=== PATIENT | female | born 1970 | race Caucasian/White ===

== ENCOUNTER 2017-02-22 15:02 | Observation (INO) | payer BC, SELFPAY ==
[~2017-02-22 15:02] MED LIST: ISOVUE-370 76%-LOCM 1 ML ONE
[2017-02-22 15:33] LABS: Hemoglobin 13.4 g/dL (12.0-16.0); Mean Corpuscular HGB CONC 32.5 g/dL (32.0-36.0); Mean Corpuscular Hemoglobin 32.8 pg (27.0-31.0); Mean Platelet Volume 7.3 fL (7.4-10.4); Platelet Count 436 thou/uL (130-400); RBC Distribution Width 12.3 % (11.5-14.5); Red Blood Cell (RBC) Count 4.09 mill/uL (4.20-5.40); White Blood Cell (WBC) Count 8.6 thou/uL (4.8-10.8)
[2017-02-22 15:49] LABS: Band 1 % (5-11); Eosinophils 2 % (0-10); Lymphocytes 28 % (21-51); MDiff Complete? YES; Macrocytosis SLIGHT = 6-15 cells (100X) (0-5/hpf); Monocytes 9 % (0-10); Neutrophil 53 % (42-75); PLT Morphology Comment Appears Increased; Reactive Lymphocytes 7 % (0-10); Target Cells SLIGHT = 2-5 cells (100X) (0-1/hpf)
[2017-02-22 15:58] LABS: ALT (SGPT) 39 U/L (8-55); AST (SGOT) 42 U/L (5-34); Albumin 4.5 g/dL (3.5-5.0); Alkaline Phosphatase 68 U/L (40-150); Anion Gap 12 mmol/L (10-20); BUN (Urea Nitrogen) 11 mg/dL (7.0-18.7); Bilirubin, Total 0.3 mg/dL (0.2-1.2); Calc. Creatinine Clearance 0 mL/min (70-130); Calcium 9.8 mg/dL (7.8-10.44); Carbon Dioxide 26 mmol/L (22-29); Chloride 103 mmol/L (98-107); Estimated GFR-MDRD 81; Globulin 3.6 g/dL (2.4-3.5); Glucose 88 mg/dL (70-105); Lipase 149 U/L (8-78); Potassium 4.9 mmol/L (3.5-5.1); Protein, Total 8.1 g/dL (6.0-8.3); Sodium 136 mmol/L (136-145)
[2017-02-22] MEDS ORDERED: Fentanyl 100 MCG/2 ML VIAL ONE ×2 (20:42→22:00)
[2017-02-22] MEDS ORDERED: Ondansetron HCl/PF 4 MG/2 ML Vial ONE ×2 (20:42→23:19)
[2017-02-22 21:57] LABS: CKMB 0.8 ng/mL (0-6.6); Troponin I Less than 0.010 ng/mL (< 0.028)
[2017-02-22] MEDS ORDERED: metroNIDAZOLE 500 MG in Premix Bag 1 BAG IVPB SCH (23:15)
--- NOTE | 2017-02-22 23:37 | CT ---
EXAM: ABDOMEN CT WITH CONTRAST PELVIC CT WITH CONTRAST 02/22/17 HISTORY: Vomiting, diarrhea, stomach swelling since 12:31. Evaluate for possible flair up of Crohn's disease. COMPARISON: None. TECHNIQUE: Abdomen and pelvic CT are performed with IV contrast. Enteric contrast was not administered. Coronal reformatted images are submitted for interpretation. FINDINGS: ABDOMEN CT: Minimal atelectasis in the lung bases. Heart size is normal. No significant pericardial fluid. The de scending thoracic aorta and abdominal aorta have an overall normal caliber. No periaortic fat strandi ng. Symmetric attenuation of the psoas muscles. Intra and extrahepatic portal vein is patent. Gallbladder is unremarkable. The liver, pancreas and adrenal glands have appropriate enhancement. Spleen is surgically absent. There is a residual splenule. There are mildly enlarged peripancreatic and periportal lymph nodes. customer solutions representative lymph node measur es 0.8 x 1.9 cm. No mesenteric mass, lymphadenopathy, free air or free fluid. Symmetric enhancement of the kidneys. Bilaterally, no obstructive uropathy. Nonspecific periaortic and aortocaval lymph nodes. Limited evaluation of the alimentary canal by the lack of oral contrast. Duodenum is slightly promine nt and fluid filled. Multiple small bowel loops have an overall normal caliber. No evidence of small bowel obstruction based on size criteria. There is evidence of previous surgery with an anastomotic s urgery chain involving small bowel loops in the right hemiabdomen. Ileocecal junction is normal. Ther e is fluid attenuation throughout the majority of the colon without evidence of well formed stool. Co lonic mucosa does not appear to be thickened. No pericolonic fat stranding. PELVIC CT: Urinary bladder is unremarkable. No pelvic mass, lymphadenopathy, free air or free fluid. Surgically absent uterus. No lytic or blastic lesions in the osseous structures. Suggestion of a grossly normal right ovary me asuring 2.6 x 1.5 cm. IMPRESSION: 1. Lack of well formed stool throughout the colon. Correlate for possible colitis due to infecti ous or inflammatory process. No obvious mucosal abnormality at this time. 2. Multiple nondistended, nondilated loops of fluid filled small bowel, nonspecific. 3. Nonspecific periportal and peripancreatic lymphadenopathy. Nonspecific retroperitoneal lympha denopathy as detailed above. Comparison to prior imaging is recommended. POS: [facility]
[2017-02-23] MEDS ORDERED: Ondansetron HCl/PF 4 MG/2 ML Vial ONE (00:10)
[2017-02-23] MEDS ORDERED: Fentanyl 100 MCG/2 ML VIAL ONE (00:10)
[2017-02-23] MEDS ORDERED: Fentanyl 100 MCG/2 ML VIAL SLOW IVP PRN (00:45)
[2017-02-23] MEDS ORDERED: Ondansetron HCl/PF 4 MG/2 ML Vial IVP PRN (00:46)
[2017-02-23] MEDS ORDERED: Ondansetron ODT 4 MG TAB SL PRN (00:46)
[2017-02-23 01:54] VITALS: BMI 27.3
[2017-02-23] MEDS: Morphine 4 MG/ML VIAL IV PRN ×5 (09:25→22:48)
[2017-02-23] MEDS ORDERED: PROVENTIL INHALER 6.7 G (200 INHALATIONS) INH PRN (10:25)
[2017-02-23] MEDS ORDERED: Famotidine/PF 20 mg/2ml Vial SLOW IVP SCH (11:15)
[2017-02-23] MEDS: Sodium Chloride 0.9% 1,000 ML IV SCH (11:22)
--- NOTE | 2017-02-23 11:37 | HP ---
DATE OF ADMISSION: 02/23/2017 CHIEF COMPLAINT: Diarrhea and vomiting. HISTORY OF PRESENT ILLNESS: This is a 46-year-old white female with a known history of Crohn's disea se had almost total small intestine removed starting from 2000 and the next one in 2014. The patient recently moved from [place] a few days ago and she happened to eat at [employer] and she de veloped severe nausea and vomiting followed by severe profuse diarrhea. The patient has been having bowel movements for more than 2 days and 2-3 times in the daytime and 4-5 times in the night time ass ociated with severe vomiting. She denied passing any blood in the stool or no mucus in the stool and she says it was clear diarrhea. She denies taking any recent oral antibiotics for any infection. S he has no primary care physician or no GI set up over here as she recently moved. She came to the ER for further evaluation, knowing that this is a Crohn's exacerbation as she had similar symptoms in t he past. She denies having any chest pain. She does have some abdominal cramps. The pain is more o f a 7/10 in intensity and comes intermittently with cramps. No burning on passing urine. No CVA tenderness. PAST MEDICAL HISTORY: 1. Hypertension. 2. Hypothyroidism. 3. Chronic asthma. 4. Gastroesophageal reflux disease. 5. Chronic Crohn's disease. PAST SURGICAL HISTORY: She had almost total small intestine removed according to her in 2 stages, on e in 2000, then one in 2014, but . SOCIAL HISTORY: The patient is a nonsmoker. No history of alcohol, no history of illicit drug use. FAMILY HISTORY: The patient has a strong family history of Crohn's disease in her mother, and also h as a history of melanoma in her father. REVIEW OF SYSTEMS: All 12 systems are reviewed with the patient thoroughly and found to be negative at this time except the ones described in the history of present illness. Constitutional: Weight loss or gain, ability to conduct usual activities. Skin: Rash, itching. Eyes: Double vision, pain. ENT/Mouth: Nose bleeding, neck stiffness, pain, tenderness. Cardiovascular: Palpitations, dyspnea on exertion, orthopnea. Respiratory: Shortness of breath, wheezing, cough, hemoptysis, fever or night sweats. Gastrointestinal: Poor appetite, abdominal pain, heartburn, nausea, vomiting, constipation, or diarrhea. Genitourinary: Urgency, frequency, dysuria, nocturia. Musculoskeletal: Pain, swelling. Neurologic/Psychiatric: Anxiety, depression. Allergy/Immunologic: Skin rash, bleeding tendency. PHYSICAL EXAMINATION: VITAL SIGNS: Blood pressures are 102/56, heart rate of 69, respirations 14, saturation is 97%. GENERAL: The patient is moderately built and moderately nourished. She does not appear in any acute distress at this time. She is alert and oriented x3. Her pain is improved with morphine. HEENT: Atraumatic, normocephalic. PERRLA. Extraocular movements were intact. Oral mucosa is dry. CARDIOVASCULAR: S1, S2 normal. No murmurs, rubs or gallops. LUNGS: Bilateral air entry was equal. No wheezing, no crackles. ABDOMEN: Tenderness noted in the left upper quadrant, otherwise no guarding, no rebound tenderness. Bowel sounds were diminished. MUSCULOSKELETAL: No calf tenderness. No pedal edema. No joint tenderness, no joint swelling. SKIN: No cyanosis, no erythema, no rash, no pallor. NEUROLOGIC: Cranial nerve examination II-XII intact. No focal deficits were noted. PSYCHIATRIC: No signs of suicidal ideation. No signs of turner. The patient has a depressed mood at this time. LYMPH: No evidence of any generalized lymphadenopathy was noted. LABORATORY DATA: WBC 8.6, hemoglobin 13.4, hematocrit is 41.2, platelets are 436. Sodium 136, potassium 4.9, chloride 103, bicarbonate is 26, BUN 11, creatinine 0.77. ASSESSMENT AND PLAN: 1. Acute intractable nausea and vomiting. 2. Possible acute Crohn's disease exacerbation. 3. Moderate to severe dehydration. 4. Hypertension. 5. Hypothyroidism 6. History of depression. PLAN: The plan is to start the patient on IV fluids with 100 mL an hour and try to hydrate her and m onitor the urine outputs. We will start the patient on ciprofloxacin and Flagyl, which has already b een started in the ER. We will get stool cultures with stool WBCs to document any inflammatory diarr hea. We will also consult Gastroenterology emissions testing and repair technician today. The patient needs a GI anyway as an outpatient for management of her Crohn's disease. The patient has severe diarrhea. We will continue to monitor this patient at this time, with proper hydration and will start the patient on probiotics once okay with the GI. The patient has history of hypertension. We will restart the patient on home medications. The patient has history of chronic asthma. We will closely monitor for any evidence of worsening ast hma. At this time we will do p.r.n. nebulizer treatments as needed. The patient history of gastroesophageal reflux disease. We will restart her home medication of omepr azole. The patient is at risk of getting a C. diff infection because of the chronic PPI use. We will do a C . diff toxin assay at this time. Deep venous thrombosis prophylaxis with Lovenox 40 mg subcu daily. I spent 70 minutes of this patient.
[2017-02-23] MEDS: Ondansetron HCl/PF 4 MG/2 ML Vial IVP PRN (12:42)
[2017-02-23] MEDS: metroNIDAZOLE 500 MG in Premix Bag 1 BAG IVPB SCH ×2 (14:39→20:32)
[2017-02-23] MEDS: Metoclopramide HCl 10 MG/2 ML VIAL IVP PRN (16:42)
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
[2017-02-23] MEDS: Famotidine/PF 20 mg/2ml Vial SLOW IVP SCH (20:31)
[2017-02-24] MEDS: Sodium Chloride 0.9% 1,000 ML IV SCH ×3 (00:28→15:32)
[2017-02-24] MEDS: Morphine 4 MG/ML VIAL IV PRN ×7 (01:40→23:57)
[2017-02-24] MEDS: metroNIDAZOLE 500 MG in Premix Bag 1 BAG IVPB SCH ×4 (01:41→20:44)
[2017-02-24] MEDS: Levothyroxine Sodium 75 MCG TAB PO SCH (05:07)
[2017-02-24 06:28] LABS: Anion Gap 11 mmol/L (10-20); BUN (Urea Nitrogen) 5 mg/dL (7.0-18.7); Calc. Creatinine Clearance 122 mL/min (70-130); Calcium 9.4 mg/dL (7.8-10.44); Carbon Dioxide 25 mmol/L (22-29); Chloride 107 mmol/L (98-107); Estimated GFR-MDRD Greater than 90; Glucose 107 mg/dL (70-105); Potassium 5.1 mmol/L (3.5-5.1); Sodium 138 mmol/L (136-145)
[2017-02-24 07:19] LABS: Anisocytosis SLIGHT = 6-15 cells (100X) (0-5/hpf); Hemoglobin 11.9 g/dL (12.0-16.0); Lymphocytes 10 % (21-51); MDiff Complete? YES; Mean Corpuscular HGB CONC 32.1 g/dL (32.0-36.0); Mean Corpuscular Hemoglobin 32.9 pg (27.0-31.0); Mean Platelet Volume 7.8 fL (7.4-10.4); Monocytes 6 % (0-10); Neutrophil 78 % (42-75); Platelet Count 417 thou/uL (130-400); RBC Distribution Width 12.3 % (11.5-14.5); Reactive Lymphocytes 6 % (0-10); Red Blood Cell (RBC) Count 3.62 mill/uL (4.20-5.40)
[2017-02-24] MEDS: Enoxaparin Sodium 40 MG/0.4 ML SYRINGE SC SCH (08:20)
[2017-02-24] MEDS: Famotidine/PF 20 mg/2ml Vial SLOW IVP SCH (08:20)
[2017-02-24] MEDS: Metoprolol Tartrate 25 MG TAB PO SCH (08:21)
[2017-02-24] MEDS: Metoclopramide HCl 10 MG/2 ML VIAL IVP PRN (08:22)
[2017-02-24] MEDS: FLUoxetine HCl 20 MG CAP PO SCH (08:22)
[2017-02-24] MEDS ORDERED: FLU VACC QS2017-18 36 mo. & older 0.5 ML SYRINGE IM ONE (09:00)
--- NOTE | 2017-02-24 12:59 | PRG ---
DATE OF SERVICE: 02/24/2017 REASON FOR CONSULTATION: Probable Crohn's flare, diarrhea. SUBJECTIVE: Overnight, the patient continues to have mid epigastric/left upper quadrant abdominal pa in that is unchanged in character or severity; however, she has not had any further bouts of diarrhea since she has been inpatient and unable to contribute a stool sample for infectious workup. Current ly, denies any nausea, vomiting, fevers, chills, shortness of breath, dysphagia, odynophagia, diarrhe a, constipation, melena, hematochezia or hematemesis. OBJECTIVE: VITAL SIGNS: Temperature 98.2, pulse 85, blood pressure 92/53, respiratory rate 16 and satting 98% o n room air. GENERAL: No acute distress. Alert and oriented x4. NECK: Supple. No JVD noted. CARDIOVASCULAR: Regular rate and rhythm with no discernible murmurs, gallops or rubs. RESPIRATORY: Clear to auscultation bilaterally with no discernible wheezes or rales. ABDOMEN: Soft, nontender and nondistended. Normoactive bowel sounds. Tenderness to palpation in th e left upper quadrant and left periumbilical regions with less abdominal pain in the midepigastric an d suprapubic regions. EXTREMITIES: No cyanosis, clubbing or edema. LABORATORY DATA: CBC with a white blood cell count of 6, hemoglobin 11.9, hematocrit 37 and platelet s 417. Chemistry with a sodium of 138, potassium 5.1, chloride 107, carbon dioxide 25, BUN 5, creati nine 0.69, glucose 107, AST 42, ALT 39, alkaline phosphatase 68 and total bilirubin 0.3. IMAGING STUDIES: No further imaging studies are available for review at this time. ASSESSMENT AND PLAN: The patient is a 46-year-old female with past medical history of hypertension, hypothyroidism, asthma, gastroesophageal reflux disease, chronic HCV infection (untreated) and Crohn' s disease presenting with probable Crohn's flare. Probable Crohn's flare. The patient is presenting with a history of Crohn's disease diagnosed in that was based on colonoscopy visualization and biopsies at that time. She had been placed on ster oids in the past with good response; however, she had recurrence of her Crohn's disease with small bianca wel perforation in both 2000 and 2014 that was amenable to surgical resection. She had not been plac ed on any medications for maintenance therapy related to Crohn's disease after the small bowel perfor ation in 2014, now presenting with increased abdominal pain consistent with a Crohn's flare. CT find ings at this time are not consistent with small-bowel obstruction or perforation with peritonitis. L ipase is mildly elevated at 149, which could indicate possible pancreatitis, but not likely at this t brenden given CT findings. At this point, the most likely source is a probable Crohn's flare with flare resulting from other infectious or medication noncompliance etiology; however, with lack of bowel mov ements within the last 24 hours, an infectious etiology is much less likely. RECOMMENDATIONS: 1. Would continue IV fluid. 2. Pain control per primary team. 3. We will follow up infectious stool studies and treat any pathogen if possible if samples obtained . 4. Would start patient on prednisone 40 mg daily today for probable Crohn's flare. The patient will need follow up in the GI clinic within 2 weeks of discharge.
--- NOTE | 2017-02-24 13:34 | PDOC.PN ---
- Subjective Encounter Start Date: 02/24/17 Encounter Start Time: 10:30 Katelin is seen today, alert and oriented. She feels her abdominal pain is improving., she is still nauseas. - Objective Resuscitation Status: Resuscitation Status FULL:Full Resuscitation MAR Reviewed: Yes Vital Signs & Weight: Vital Signs (12 hours) Temp Pulse Resp BP BP Pulse Ox 02/24/17 11:10 98.2 F 85 16 92/53 L 98 02/24/17 08:00 97.6 F 76 16 02/24/17 07:32 97.6 F 76 16 102/56 L 95 02/24/17 05:07 64 18 115/62 95 Weight Weight 164 lb 4.8 oz I&O: 02/23/17 02/24/17 02/25/17 06:59 06:59 06:59 Intake Total 0 1300 Balance 0 1300 Result Diagrams: 02/24/17 05:01 02/24/17 05:01 Radiology Reviewed by me: Yes Phys Exam - Physical Examination HEENT: PERRLA, moist MMs Neck: no nodes, no JVD Respiratory: no wheezing, no rales Cardiovascular: RRR, no significant murmur Gastrointestinal: soft, non-tender, positive bowel sounds Musculoskeletal: no edema, pulses present Lymphatic: no nodes Psychiatric: normal affect, A&O x 3 Skin: no rash, normal turgor Dx/Plan (1) Crohns disease Code(s): K50.90 - CROHN'S DISEASE, UNSPECIFIED, WITHOUT COMPLICATIONS Status: Acute (2) Moderate dehydration Code(s): E86.0 - DEHYDRATION Status: Acute (3) Chronic asthma Code(s): J45.909 - UNSPECIFIED ASTHMA, UNCOMPLICATED Status: Acute (4) GERD (gastroesophageal reflux disease) Code(s): K21.9 - GASTRO-ESOPHAGEAL REFLUX DISEASE WITHOUT ESOPHAGITIS Status: Acute - Plan cont current plan of care, continue antibiotics, PT/OT, out of bed/ambulate, DVT proph w/lovenox * Plan: * Acute Crohns Exacrbation: will continue with Oral steroids 40mg po daily prednisone and IV cipo and Flagyl. Pending stool cultures. * Moderate Dehydration: Will continue with IV fluids hydration, as patient remains nauseas and not feeding well. * Chronic Paige is stbale, no exacerbation noted. prn Albuteral. * GERD: continue on omprazole. meeke. * Disposition: dischagre home tomorrow. - Discharge Day Encounter end time: 11:00 Review of Systems - Review of Systems Constitutional: weakness Eyes: negative: Pain, Vision Change, Conjunctivae Inflammation, Eyelid Inflammation, Redness, Other ENT: negative: Ear Pain, Ear Discharge, Nose Pain, Nose Discharge, Nose Congestion, Mouth Pain, Mouth Swelling, Throat Pain, Throat Swelling, Other Respiratory: negative: Cough, Dry, Shortness of Breath, Hemoptysis, SOB with Excertion, Pleuritic Pain, Sputum, Wheezing Cardiovascular: negative: chest pain, palpitations, orthopnea, paroxysmal nocturnal dyspnea, edema, light headedness, other Gastrointestinal: Nausea, Abdominal Pain Genitourinary: negative: Dysuria, Frequency, Incontinence, Hematuria, Retention , Other Musculoskeletal: negative: Neck Pain, Shoulder Pain, Arm Pain, Back Pain, Hand Pain, Leg Pain, Foot Pain, Other Skin: negative: Rash, Lesions, Mario, Bruising, Other Neurological: negative: Weakness, Numbness, Incoordination, Change in Speech, Confusion, Seizures, Other - Medications/Allergies Allergies/Adverse Reactions: Allergies Allergy/AdvReac Type Severity Reaction Status Date / Time vancomycin Allergy Verified 02/23/17 00:55 Medications: Current Medications Hydrocodone Bitart/Acetaminophen ([place] 5/325) 1 tab PO Q4H PRN PRN Reason: Moderate Pain (4-6) Albuterol Sulfate (Proventil Hfa) 2 puff INH Q6H PRN PRN Reason: SOB &/or Wheezing Enoxaparin Sodium (Lovenox) 40 mg SC 0900 [facility] Last Admin: 02/24/17 08:20 Dose: 40 mg Famotidine (Pepcid) 20 mg SLOW IVP Q12HR [facility] Last Admin: 02/24/17 08:20 Dose: 20 mg Fluoxetine HCl (Prozac) 60 mg PO DAILY [facility] Last Admin: 02/24/17 08:22 Dose: 60 mg Sodium Chloride (Normal Saline 0.9%) 1,000 mls @ 100 mls/hr IV .Q10H [facility] Last Admin: 02/24/17 08:16 Dose: 1,000 mls Ciprofloxacin/Dextrose 400 mg/ (Device) 200 mls @ 200 mls/hr IVPB 1200,2359 [facility] Last Admin: 02/24/17 12:37 Dose: 200 mls Metronidazole 500 mg/ Device 100 mls @ 100 mls/hr IVPB 0200,0800,1400,2000 [facility] Last Admin: 02/24/17 08:17 Dose: 100 mls Levothyroxine Sodium (Synthroid) 75 mcg PO 0600 [facility] Last Admin: 02/24/17 05:07 Dose: 75 mcg Metoclopramide HCl (Reglan) 10 mg IVP Q8H PRN PRN Reason: Nausea Last Admin: 02/24/17 08:22 Dose: 10 mg Metoprolol Tartrate (Lopressor) 25 mg PO DAILY [facility] Last Admin: 02/24/17 08:21 Dose: 25 mg Morphine Sulfate (Morphine) 4 mg IV Q3H PRN PRN Reason: Pain Last Admin: 02/24/17 12:32 Dose: 4 mg Ondansetron HCl (Zofran) 4 mg IVP Q6H PRN PRN Reason: Nausea/Vomiting Last Admin: 02/23/17 12:42 Dose: 4 mg Prednisone (Prednisone) 40 mg PO DAILY [facility] Sodium Chloride (Flush - Normal Saline) 10 ml IVF Q12HR [facility] Last Admin: 02/24/17 08:51 Dose: Not Given Sodium Chloride (Flush - Normal Saline) 10 ml IVF PRN PRN PRN Reason: Saline Flush
[2017-02-24] MEDS: HYDROcodone/Acetaminophen 5/325 mg Tablet PO PRN (22:52)
[2017-02-24] MEDS ORDERED: Famotidine 20 MG TAB PO SCH (23:00)
[2017-02-25] MEDS: metroNIDAZOLE 500 MG in Premix Bag 1 BAG IVPB SCH ×4 (02:19→19:52)
[2017-02-25] MEDS: Levothyroxine Sodium 75 MCG TAB PO SCH (05:27)
[2017-02-25] MEDS: Morphine 4 MG/ML VIAL IV PRN ×5 (05:43→21:57)
[2017-02-25 06:04] LABS: #Basophils 0.1 thou/uL (0.0-0.2); #Eosinphils 0.1 thou/uL (0.0-0.7); #Lymphocytes 3.4 thou/uL (1.20-3.40); #Monocytes 1.4 thou/uL (0.11-0.59); #Neutrophils 4.3 thou/uL (1.40-6.50); %Basophils 0.8 % (0.0-1.0); %Eosinophils 1.1 % (0.0-10.0); %Lymphocytes 36.9 % (21.0-51.0); %Monocytes 14.5 % (0.0-10.0); %Neutrophils 46.7 % (42.0-75.0); Hemoglobin 11.3 g/dL (12.0-16.0); Mean Corpuscular HGB CONC 32.3 g/dL (32.0-36.0); Mean Corpuscular Hemoglobin 32.9 pg (27.0-31.0); Platelet Count 397 thou/uL (130-400); RBC Distribution Width 12.4 % (11.5-14.5); Red Blood Cell (RBC) Count 3.43 mill/uL (4.20-5.40); White Blood Cell (WBC) Count 9.3 thou/uL (4.8-10.8)
[2017-02-25 06:22] LABS: Anion Gap 9 mmol/L (10-20); BUN (Urea Nitrogen) 7 mg/dL (7.0-18.7); Calc. Creatinine Clearance 117 mL/min (70-130); Calcium 8.4 mg/dL (7.8-10.44); Carbon Dioxide 24 mmol/L (22-29); Chloride 107 mmol/L (98-107); Estimated GFR-MDRD 88; Glucose 80 mg/dL (70-105); Sodium 136 mmol/L (136-145)
[2017-02-25] MEDS: Enoxaparin Sodium 40 MG/0.4 ML SYRINGE SC SCH (08:15)
[2017-02-25] MEDS: FLUoxetine HCl 20 MG CAP PO SCH (08:16)
[2017-02-25] MEDS: predniSONE 20 MG TAB PO SCH (08:16)
[2017-02-25] MEDS: Famotidine 20 MG TAB PO SCH ×2 (08:17→20:06)
[2017-02-25] MEDS: Metoprolol Tartrate 25 MG TAB PO SCH (08:17)
[2017-02-25] MEDS: HYDROcodone/Acetaminophen 5/325 mg Tablet PO PRN (08:17)
[2017-02-25] MEDS: Ondansetron HCl/PF 4 MG/2 ML Vial IVP PRN (09:10)
--- NOTE | 2017-02-25 14:32 | PDOC.PN ---
- Subjective Encounter Start Date: 02/25/17 Encounter Start Time: 09:10 -: old records requested/rev Pt seen and exmained, chart reviewed in its entirety, this is my first visit with this patient. Initally here at 0910 to see. Pt feeling better, ate a little breakfast. after i left, she promptly threw up. Seen by Dr Chen form GI short time ago, was going to get a KUB and star ton a stool softener. No F/C, no diarrhea, but is constipated. no cough or sputum production. Came back at 1410, not feeling as well. 10 point rOS performed and neg for all systems except as per HPI - Objective Resuscitation Status: Resuscitation Status FULL:Full Resuscitation MAR Reviewed: Yes Vital Signs & Weight: Vital Signs (12 hours) Temp Pulse Resp BP BP Pulse Ox 02/25/17 11:27 98.2 F 55 L 16 130/72 95 02/25/17 08:00 98.2 F 55 L 16 02/25/17 07:33 98.2 F 63 16 128/68 96 02/25/17 05:27 63 18 119/72 94 L Weight Weight 164 lb 4.8 oz I&O: 02/24/17 02/25/17 02/26/17 06:59 06:59 06:59 Intake Total 1300 400 210 Balance 1300 400 210 Result Diagrams: 02/25/17 05:32 02/25/17 05:32 Radiology Reviewed by me: Yes EKG Reviewed by me: Yes Phys Exam - Physical Examination Constitutional: NAD HEENT: PERRLA, moist MMs, sclera anicteric, 2+ tonsils Neck: no nodes, no JVD, supple, full ROM Respiratory: no wheezing, no rales, no rhonchi, clear to auscultation bilateral Cardiovascular: RRR, no significant murmur, no rub Gastrointestinal: soft, positive bowel sounds diffusely tender, more in LUQ, distended,not tense Musculoskeletal: pulses present, edema present Neurological: non-focal, normal sensation, moves all 4 limbs Lymphatic: no nodes Psychiatric: normal affect, A&O x 3 Skin: no rash, normal turgor, cap refill <2 seconds Dx/Plan (1) Crohn's colitis Code(s): K50.10 - CROHN'S DISEASE OF LARGE INTESTINE WITHOUT COMPLICATIONS Status: Acute Qualifiers: Digestive disease complication type: other complication Qualified Code(s): K50.118 - Crohn's disease of large intestine with other complication (2) Intractable nausea and vomiting Code(s): R11.2 - NAUSEA WITH VOMITING, UNSPECIFIED Status: Acute Qualifiers: Vomiting type: unspecified Qualified Code(s): R11.2 - Nausea with vomiting , unspecified (3) Chronic asthma Code(s): J45.909 - UNSPECIFIED ASTHMA, UNCOMPLICATED Status: Chronic Qualifiers: Asthma severity: unspecified severity Asthma complication type: uncomplicated (4) GERD (gastroesophageal reflux disease) Code(s): K21.9 - GASTRO-ESOPHAGEAL REFLUX DISEASE WITHOUT ESOPHAGITIS Status: Chronic Qualifiers: Esophagitis presence: without esophagitis Qualified Code(s): K21.9 - Gastro -esophageal reflux disease without esophagitis - Plan cont current plan of care, continue antibiotics * . follow up on culture,s if remain negative, will stop metronidazole first, as it can cause nasuea as well diarrhea better, now constipated, will check KUB, dulcolax suppository
[2017-02-25] MEDS ORDERED: Bisacodyl 10 MG SUPP PR PRN (14:38)
--- NOTE | 2017-02-25 15:56 | RAD ---
TWO VIEWS ABDOMEN: Indication: Constipation. FINDINGS: There is linear density at each lung base. The bowel gas pattern is nonspecific without evidence to i ndicate obstruction. There is evidence of moderate material within the colon. No acute osseous pathology. There is partially imaged bilateral femoral hardware. IMPRESSION: 1. Linear densities at each lung base which may relate to volume loss or scarring. 2. Moderate retained fecal material in the colon. POS: MARIA EUGENIA
[2017-02-25] MEDS ORDERED: Polyethylene Glycol 3350 17 GM Packet PO PRN (17:47)
--- NOTE | 2017-02-25 21:51 | PRG ---
DATE OF SERVICE: 02/25/2017 REASON FOR CONSULTATION: Probable Crohn's flare. SUBJECTIVE: Overnight and today, the patient continued to have midepigastric/left upper quadrant abd ominal pain that increased in severity but unchanged in character and location. Associated with this , was increased nausea and vomiting of nonbloody emesis. She denies any further episodes of diarrhea during this hospitalization and has been unable to contribute her stool sample for the infectious wo rkup. Currently denies any fevers, chills, shortness of breath, dysphagia, odynophagia, melena, grace tochezia or hematemesis. OBJECTIVE: VITAL SIGNS: Temperature 98.5, pulse 67, blood pressure 119/67, respiratory rate 16, satting 95% on room air. GENERAL: The patient is in mild distress, alert and oriented x4. NECK: Supple. No JVD noted. CARDIOVASCULAR: Regular rate and rhythm with no discernible murmurs, gallops or rubs. RESPIRATORY: Clear to auscultation bilaterally with no discernible wheezes or rales. ABDOMEN: Soft, nondistended, normoactive bowel sounds, tenderness to palpation in the left upper min drant and left periumbilical regions. EXTREMITIES: No cyanosis, clubbing or edema. LABORATORY DATA: CBC with a white blood cell count of 9.3, hemoglobin of 11.3, hematocrit 35, platel ets 397. Chemistry with a sodium of 136, potassium 4, chloride 107, carbon dioxide 24, BUN 7, creati nine 0.72, glucose 80. IMAGING STUDIES: Abdominal x-ray obtained on 02/25/2017 showing a nonspecific bowel gas pattern with out evidence to indicate obstruction or perforation. No evidence of free air seen on the exam. Ther e is evidence of moderate fecal material within the colon. ASSESSMENT AND PLAN: The patient is a 46-year-old female with past medical history of hypertension, hypothyroidism, asthma, gastroesophageal reflux disease, chronic HCV infection (untreated) and Crohn' s disease presenting with probable Crohn's flare. Probable Crohn's flare. The patient is presenting with a history of Crohn's disease diagnosed in that was based on colonoscopy visualization and biopsies at that time. Over the next 15 years, she was intermittently placed on therapy for her Crohn's disease with good efficacy with mercaptopurine from 2000 to 2004. More notably, she did have 2 discrete episodes of small-bowel perforation in both 2000 and [address] that [address] correction[address] CT findings on admission were not consistent with small bowel obstruction or perforation peritonitis. KUB obtained on 02/25/2017 also reflects that di agnoses. At this point, the most likely source of her abdominal pain and presenting diarrhea is the probable Crohn's flare resulting from medication noncompliance etiology. She has not had a bowel mov ement since she has been inpatient and cannot contribute to an infectious stool workup making that et iology much less likely; however, with increase of abdominal pain and like bowel movement is concerni ng for constipation and/or perforation given her history in the past although this has not reflected on current imaging. RECOMMENDATIONS: 1. We will continue IV fluid as you are doing. 2. Pain control per primary team. 3. Let start patient on bowel regimen including MiraLax 1 capful nightly for constipation. 4. We will continue patient on prednisone 40 mg daily for probable Crohn's flare. The patient will need followup in GI clinic within 2 weeks of discharge. 5. We will continue p.r.n. antiemetic therapy as you are doing.
[2017-02-26] MEDS: HYDROcodone/Acetaminophen 5/325 mg Tablet PO PRN ×3 (00:01→11:36)
[2017-02-26] MEDS: Morphine 4 MG/ML VIAL IV PRN ×2 (01:25→09:36)
[2017-02-26] MEDS: metroNIDAZOLE 500 MG in Premix Bag 1 BAG IVPB SCH ×2 (02:20→09:31)
[2017-02-26] MEDS: Levothyroxine Sodium 75 MCG TAB PO SCH (06:32)
[2017-02-26 06:34] LABS: #Basophils 0.1 thou/uL (0.0-0.2); #Lymphocytes 4.9 thou/uL (1.20-3.40); #Monocytes 1.8 thou/uL (0.11-0.59); #Neutrophils 5.4 thou/uL (1.40-6.50); %Basophils 0.6 % (0.0-1.0); %Eosinophils 0.3 % (0.0-10.0); %Lymphocytes 39.8 % (21.0-51.0); %Monocytes 14.9 % (0.0-10.0); %Neutrophils 44.4 % (42.0-75.0); Hemoglobin 12.4 g/dL (12.0-16.0); Mean Corpuscular HGB CONC 32.3 g/dL (32.0-36.0); Mean Platelet Volume 8.3 fL (7.4-10.4); Platelet Count 429 thou/uL (130-400); RBC Distribution Width 12.4 % (11.5-14.5); Red Blood Cell (RBC) Count 3.76 mill/uL (4.20-5.40); White Blood Cell (WBC) Count 12.3 thou/uL (4.8-10.8)
[2017-02-26 07:42] LABS: Anion Gap 10 mmol/L (10-20); BUN (Urea Nitrogen) 5 mg/dL (7.0-18.7); Calc. Creatinine Clearance 113 mL/min (70-130); Calcium 9.7 mg/dL (7.8-10.44); Carbon Dioxide 31 mmol/L (22-29); Chloride 103 mmol/L (98-107); Estimated GFR-MDRD 87; Glucose 82 mg/dL (70-105); Potassium 5.1 mmol/L (3.5-5.1); Sodium 139 mmol/L (136-145)
[2017-02-26 08:49] VITALS: BP 171/76; TEMP 98.2
[2017-02-26] MEDS: FLUoxetine HCl 20 MG CAP PO SCH (09:38)
[2017-02-26] MEDS: Famotidine 20 MG TAB PO SCH (09:39)
[2017-02-26] MEDS: Enoxaparin Sodium 40 MG/0.4 ML SYRINGE SC SCH (09:39)
[2017-02-26] MEDS: Metoprolol Tartrate 25 MG TAB PO SCH (09:39)
[2017-02-26] MEDS: predniSONE 20 MG TAB PO SCH (09:39)
--- NOTE | 2017-02-26 17:00 | DIS ---
DATE OF ADMISSION: 02/22/2017 DATE OF DISCHARGE: 02/26/2017 DISCHARGE DIAGNOSES: 1. Crohn disease with acute exacerbation. 2. Intractable nausea, vomiting, and diarrhea. 3. Moderate to severe dehydration. 4. Abdominal pain. CONSULTATIONS: Gastroenterology, Dr. Chen. PROCEDURES: None. HISTORY AND PHYSICAL: Ms. Cox is a 46-year-old female with known Crohn disease followed by an [facility] lead cargoman. She recently moved here from [place] a few days ago. She had eaten at [employer] and developed severe nausea and vomiting and then profuse diarrhea. She has been carballo ving multiple bowel movements a day and twice many at night. [facility] In the emergency department, CT scan was done that revealed possible colitis due to infection or infl ammatory process due to lack of well-formed stool and multiple nondistended nondilated loops of fluid -filled small bowel, no specific retroperitoneal adenopathy and periportal and peripancreatic lymphad enopathy. She was subsequently admitted to our service. HOSPITAL COURSE: The patient was seen and examined. She was admitted by Dr. Lozano. She was started on Cipro and Flagyl, GI was consulted. She was seen by Dr. Chen, on 02/23/2017, patient was started on IV Solu-Medrol for probable Crohn fl are and was continued on antibiotics and IV hydration. 02/24/2017, the patient was slightly improved with respect to abdominal pain. Still feeling very sakshi seated. She is continuing current management. On 02/25/2017, I took the case over. She was actuall y feeling better in the morning; however, tried to eat a diet and quickly threw it up. She was switc hed over to a BRAT diet which she ate lunch and tolerated well, but when GI saw her, felt that they w ould back off on her diet to a clear liquid diet. Pain was well controlled, nausea was controlled. This morning, she was feeling much better. She was placed back on a BRAT diet which she tolerated we ll and was discharged home after tolerating her lunch. PHYSICAL EXAMINATION: The patient was seen and examined. Discharge plan and disposition was discussed with the patient face to face at bedside. DISCHARGE MEDICATIONS: 1. Prednisone 40 mg daily, prescription given for month with a refill, until she sees GI. 2. Albuterol sulfate 2 puffs inhale q.6 hours via [facility] as needed. 3. Prozac 60 mg daily. 4. Hydrocodone 5/325 one p.o. q.4 hours p.r.n. pain, prescription for 30 tablets with no refills sen t given on triplicate. 5. Ibuprofen as needed. 6. Levothyroxine 75 mcg daily. 7. Reglan rapid dissolve 10 mg p.o. q.i.d. p.r.n. nausea and vomiting. Prescription given. There w as metoprolol tartrate 25 mg p.o. daily. 8. MiraLax 17 grams p.o. daily, prescription given for 1 bottle with 2 refills. FOLLOWUP APPOINTMENTS: Within a week, a lead cargoman in 1-2 weeks. DISCHARGE DIET: BRAT diet recommended and advance as tolerated. DISCHARGE ACTIVITY: As tolerated.
== END 2017-02-26 13:37 | disposition home or self-care (01) ==
LOC: ERS 15:02 → 2SW 23:40
PROVIDERS: ADMIT Internal Medicine; ATTEND Internal Medicine
DX: K50.90 Crohn's disease, unspecified, without complications (principal); R11.2 Nausea with vomiting, unspecified; E86.0 Dehydration; I10 Essential (primary) hypertension; E03.9 Hypothyroidism, unspecified; J45.909 Unspecified asthma, uncomplicated; F32.9 Major depressive disorder, single episode, unspecified; Z88.1 Allergy status to other antibiotic agents; Z90.49 Acquired absence of other specified parts of digestive tract
CPT/HCPCS: 36415; 74018; 74177; 80048; 80053; 82553; 83605; 83690; 84484; 85025; 90471; 90682; 96361; 96365; 96366; 96372; 96375; 96376; A4216; G0008; G0378; J0744; J1650; J2270; J2405; J2765; J2920; J3010; J7506; Q2036; S0028